=== PATIENT | male | born 1965 | race Caucasian/White ===

== ENCOUNTER → 2018-01-12 | Outpatient (CLI) | payer BC ==
--- NOTE | 2018-01-12 18:12 | RAD ---
CERVICAL SPINE 5V History: Neck pain for 6-8 months, pain into the right arm and between the scapula Comparison: None. Findings: 6 views of the cervical spine are submitted. There is likely degree of narrowing of the bilateral C5-6 neural foramina in part from uncovertebral degenerative change. There is adequate alignment of lateral masses C1 relative to C2. Cervical vertebral body stature and AP alignment are maintained. There is mild degenerative disc disease C5-6. Inferior cervical spine is somewhat poorly visualized due to overlying bone and soft tissues of the lateral views. Impression: 1. There is mild degenerative disc disease C5-6. There is probably a degree of C5-6 neural foramina compromise due to uncovertebral degenerative change. Electronically signed by: Tylor Goldstein MD (01/12/2018 6:09 PM) [id number]
== END | disposition home or self-care (01) ==
LOC: PMG 14:48
PROVIDERS: ATTEND Physician Assistant
DX: M50.322 Other cervical disc degeneration at C5-C6 level (principal)
CPT/HCPCS: 72050

== ENCOUNTER → 2018-04-18 | Outpatient (CLI) | payer BC ==
[~2018-04-18] MED LIST: 0.9 % SODIUM CHLORIDE 10 ML VIAL ONE; BUPIVACAINE MPF 0.25% 10 ML VIAL. ONE; IOHEXOL 300 MG/ML 50 ML VIAL. ONE; LIDOCAINE 1% PF 30 ML VIAL. ONE; ONDA4TAB7 PO; methylPREDNISolone ACETATE 80 MG/ML VIAL. ONE
== END | disposition home or self-care (01) ==
LOC: SURG 08:27
PROVIDERS: ATTEND Anesthesiology Pain Medicine
DX: M54.12 Radiculopathy, cervical region (principal); I10 Essential (primary) hypertension; E78.5 Hyperlipidemia, unspecified; E66.9 Obesity, unspecified; G89.29 Other chronic pain; Z90.49 Acquired absence of other specified parts of digestive tract; Z98.890 Other specified postprocedural states; Z79.899 Other long term (current) drug therapy; Z72.89 Other problems related to lifestyle; G47.30 Sleep apnea, unspecified
CPT/HCPCS: 62321; J1040; J2001; J3490; Q9967; 64479

== ENCOUNTER 2018-04-27 06:59 | Emergency (ER) | payer BC ==
[~2018-04-27] VITALS: Ht 185.4 cm; Wt 154.2 kg
[2018-04-27 06:59] VITALS: BP 175/85
--- NOTE | 2018-04-27 07:47 | EKG ---
[address] [address] Test Date: 2018-04-27 Test Time: 07:17:02 Pat Name: MICHAEL FRAZIER Department: Room: Gender: M Ledger Clerk: : 1965 Requested By: ELHAM MOMIN Order Number: [id number] Reading MD: Adalberto Pittman MD Measurements Intervals [place] Rate: 72 P: -139 AK: 136 QRS: -16 QRSD: 98 T: -3 QT: 372 QTc: 409 Interpretive Statements SINUS RHYTHM Electronically Signed On 05-01-2018 8:00:25 PATIENT SUPPORT REPRESENTATIVE by Adalberto Pittman MD
[2018-04-27 07:53] LABS: BASO # 0.1 x10^3/uL (0.0-0.2); BASO % 1 % (0-3); EOS # 0.1 x10^3/uL (0.0-0.7); EOS % 1 % (0-3); HEMATOCRIT 44.2 % (39.0-53.0); LYMPH # 1.9 x10^3/uL (1.0-4.8); LYMPH % 24 % (24-48); MEAN CORPUSCULAR HEMOGLOBIN 30 pg (25-35); MEAN CORPUSCULAR HGB CONC 34 g/dL (31-37); MEAN CORPUSCULAR VOLUME 88 fL (79-100); MONO # 0.8 x10^3/uL (0.0-1.1); MONO % 9 % (0-9); NEUT # 5.1 x10^3uL (1.8-7.7); NEUT % 65 % (31-73); PLATELET COUNT 183 x10^3/uL (140-400); RED BLOOD COUNT 5.01 x10^6/uL (4.30-5.70); RED CELL DISTRIBUTION WIDTH 13.5 % (11.5-14.5)
--- NOTE | 2018-04-27 08:05 | PHYS DOC ---
Past History Past Medical History: High Cholesterol, Hypertension, Other Past Surgical History: Appendectomy, Other Alcohol Use: Occasionally Drug Use: None Adult General Chief Complaint Chief Complaint: Palpitations HPI HPI Patient is a 52 year old male who presents with complaining of intermittent episodes of palpitation. Patient complaining of intermittent episodes of palpitation for the last 2 weeks without relation to activity or stress that last for a few seconds without chest pain, dizziness, shortness of breath, weakness. Patient complaining of nausea during episodes of palpitation. Patient states he had a Holter monitor for one week with diagnosis of tachycardia. Patient states his episodes of palpitation getting more often during the last 2 days and he decided to come to ER. Patient has history of hypertension and dyslipidemia. Patient states he drinks moderate amounts of caffeine every day and denies using alcohol or drugs. Patient has appointment with cardiology since 09 of May. Review of Systems Review of Systems Constitutional: Denies fever or chills [] Eyes: Denies change in visual acuity, redness, or eye pain [] HENT: Denies nasal congestion or sore throat [] Respiratory: Denies cough or shortness of breath [] Cardiovascular: No additional information not addressed in HPI [] GI: Denies abdominal pain, vomiting, bloody stools or diarrhea [] : Denies dysuria or hematuria [] Musculoskeletal: Denies back pain or joint pain [] Integument: Denies rash or skin lesions [] Neurologic: Denies headache, focal weakness or sensory changes [] Endocrine: Denies polyuria or polydipsia [] All other systems were reviewed and found to be within normal limits, except as documented in this note. Allergies Allergies Allergies Coded Allergies Type Severity Reaction Last Updated Verified No Known Drug Allergies 04/27/18 No Physical Exam Physical Exam Constitutional: Well developed, well nourished, no acute distress, non-toxic appearance. [] HENT: Normocephalic, atraumatic, oropharynx moist, no oral exudates, nose normal. [] Eyes: PERRLA, EOMI, conjunctiva normal, no discharge. [] Neck: Normal range of motion, no tenderness, supple, no stridor. [] Cardiovascular:Heart rate regular rhythm, no murmur [] Lungs & Thorax: Bilateral breath sounds clear to auscultation [] Abdomen: Bowel sounds normal, soft, no tenderness, no masses, no pulsatile masses. [] Skin: Warm, dry, no erythema, no rash. [] Back: No tenderness, no CVA tenderness. [] Extremities: No tenderness, no cyanosis, no clubbing, ROM intact, no edema. [] Neurologic: Alert and oriented X 3, normal motor function, normal sensory function, no focal deficits noted. [] Psychologic: Affect normal, judgement normal, mood normal. [] Current Patient Data Vital Signs Vital Signs Date Time Temp Pulse Resp B/P (MAP) Pulse Ox O2 Delivery O2 Flow Rate FiO2 04/27/18 06:59 98.4 74 24 95 Room Air Lab Results Laboratory Tests Test 04/27/18 07:15 White Blood Count 8.0 x10^3/uL (4.0-11.0) Red Blood Count 5.01 x10^6/uL (4.30-5.70) Hemoglobin 15.0 g/dL (13.0-17.5) Hematocrit 44.2 % (39.0-53.0) Mean Corpuscular Volume 88 fL (79-100) Mean Corpuscular Hemoglobin 30 pg (25-35) Mean Corpuscular Hemoglobin Concent 34 g/dL (31-37) Red Cell Distribution Width 13.5 % (11.5-14.5) Platelet Count 183 x10^3/uL (140-400) Neutrophils (%) (Auto) 65 % (31-73) Lymphocytes (%) (Auto) 24 % (24-48) Monocytes (%) (Auto) 9 % (0-9) Eosinophils (%) (Auto) 1 % (0-3) Basophils (%) (Auto) 1 % (0-3) Neutrophils # (Auto) 5.1 x10^3uL (1.8-7.7) Lymphocytes # (Auto) 1.9 x10^3/uL (1.0-4.8) Monocytes # (Auto) 0.8 x10^3/uL (0.0-1.1) Eosinophils # (Auto) 0.1 x10^3/uL (0.0-0.7) Basophils # (Auto) 0.1 x10^3/uL (0.0-0.2) EKG EKG EKG interpreted by me. EKG at 0717 showed normal sinus rhythm at rate of 72, left cardenas axis, normal NM and QT intervals, no acute ST and T-wave abnormalities. Radiology/Procedures Radiology/[place] [address] IMAGING REPORT Signed PATIENT: MICHAEL FRAZIER ACCOUNT: [id number] : 1965 LOCATION: ER AGE: 52 SEX: M EXAM STATUS: REG ER ORD. PHYSICIAN: ELHAM MOMIN MD REASON: palpitation PROCEDURE: PORTABLE CHEST 1V PORTABLE CHEST 1V Clinical indications: PALPITATIONS COMPARISON: None available. Findings: There is elevation of the right hemidiaphragm. No acute lung infiltrate or pleural effusion or pulmonary edema or lung mass or pneumothorax is seen. The heart size, pulmonary vasculature, mediastinum and both dwaine are unremarkable given AP magnification. Impression: No acute radiographic abnormality is seen. Electronically signed by: Guera Chacon MD (04/27/2018 8:01 AM) [facility] DICTATED AND SIGNED BY: GUERA CHACON MD DATE: 04/27/18 0759 CC: ELHAM MOMIN MD; BARRIE CESAR ~ Course & Med Decision Making Course & Med Decision Making Pertinent Labs and Imaging studies reviewed. (See chart for details) Evolution of patient in ER showed 52-year-old male patient with complaining of intermittent episodes of palpitation for 2 months that getting worse for the last 2 days. Patient had heart monitor for few weeks ago with diagnosis of tachycardia. Patient did not have any episodes of tachycardia while he was in ER and had unremarkable labs. 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 Dragon Disclaimer Dragon Disclaimer This electronic medical record was generated, in whole or in part, using a voice recognition dictation system. 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
[2018-04-27 08:13] LABS: ALBUMIN 3.6 g/dL (3.4-5.0); ALBUMIN/GLOBULIN RATIO 0.8 (1.0-1.7); CALCIUM 9.1 mg/dL (8.5-10.1); CREATININE 1.1 mg/dL (0.7-1.3); POTASSIUM 3.9 mmol/L (3.5-5.1); TOTAL BILIRUBIN 0.6 mg/dL (0.2-1.0); TOTAL PROTEIN 7.9 g/dL (6.4-8.2)
[2018-04-27] MEDS ORDERED: ONDA4TAB7 PO (08:46)
== END 2018-04-27 08:50 | disposition home or self-care (01) ==
LOC: ER 06:59
DX: R00.2 Palpitations (principal); I10 Essential (primary) hypertension; E78.00 Pure hypercholesterolemia, unspecified
CPT/HCPCS: 36415; 71045; 80053; 82550; 83735; 83880; 84484; 85025; 93005; 99284

== ENCOUNTER → 2020-09-24 | Outpatient (CLI) | payer BC ==
[~2020-09-24] MED LIST changes: -0.9 % SODIUM CHLORIDE 10 ML VIAL ONE; -BUPIVACAINE MPF 0.25% 10 ML VIAL. ONE; -IOHEXOL 300 MG/ML 50 ML VIAL. ONE; -LIDOCAINE 1% PF 30 ML VIAL. ONE; -methylPREDNISolone ACETATE 80 MG/ML VIAL. ONE
--- NOTE | 2020-09-24 12:31 | RAD ---
EXAM: AP views of the abdomen in upright and supine positions. CLINICAL INDICATION: Reason: LUQ PAIN. HX OF BYPASS SURG, APPENDECTOMY / Spl. Instructions: / Histor y: COMPARISON: None. FINDINGS and IMPRESSION: No abnormal small or large bowel dilatation. Moderate colonic stool content. No abnormal soft tissu e mass effect. No suspicious calcifications are seen. No free intraperitoneal gas. Lower lumbar spi ne fusion hardware is seen. Electronically signed by: Yonis Rojas MD (09/24/2020 12:29 PM) [id number]
== END ==
LOC: RAD 10:09
PROVIDERS: ATTEND Physician Assistant
DX: R10.32 Left lower quadrant pain (principal); M43.26 Fusion of spine, lumbar region
CPT/HCPCS: 74019